=== PATIENT | male | born 1980 | race Caucasian/White ===

== ENCOUNTER 2025-02-05 14:05 | Outpatient (CLI) | payer BC | END 2025-02-05 14:06 | disposition home or self-care (01) | LOC: CSHMRI 14:05 | PROVIDERS: ATTEND Internal Medicine | DX: M51.26 Other intervertebral disc displacement, lumbar region (principal); M51.27 Other intervertebral disc displacement, lumbosacral region | CPT/HCPCS: 72148 ==